=== PATIENT | female | born 1955 | race Caucasian/White ===

== ENCOUNTER → 2016-09-30 | Outpatient (CLI) | payer BC ==
[~2016-09-30] MED LIST: AMOXICILLIN 8751 TAB PO; BLOOD PRESSURE MED; CIPRO 500MG TA500 MG PO; FLAGYL500 MG PO; NORCO 325 MG-51 TAB PO; NORVASC2.5 MG PO; ZOFRAN ODT4 MG PO
== END ==
LOC: MC.RAD 09:35
DX: Z12.31 Encounter for screening mammogram for malignant neoplasm of breast (principal)

== ENCOUNTER 2016-11-09 18:39 | Emergency (ER) | payer BC ==
[~2016-11-09] VITALS: Ht 162.6 cm; Wt 53.6 kg
[~2016-11-09 18:39] MED LIST changes: -AMOXICILLIN 8751 TAB PO; -CIPRO 500MG TA500 MG PO; -FLAGYL500 MG PO; -NORVASC2.5 MG PO; -ZOFRAN ODT4 MG PO
[2016-11-09 18:43] VITALS: TEMP 98.6
[2016-11-09 19:01] LABS: BASO % 0.3 % (0.0-2.0); EOS # 0.1 (0.0-0.7); EOS % 0.5 % (0-4.0); GRAN # 8.7 (1.4-6.5); GRAN % 79.3 % (42.2-75.2); HEMATOCRIT 41.1 % (37.0-47.0); LYMPH # 1.5 (1.2-3.4); LYMPH % 13.6 % (20.0-51.0); MEAN CELL VOLUME 91 fl (80.0-100.0); MEAN CORPUSCULAR HEMOGLOBIN 31 pg (27.0-31.0); MEAN CORPUSCULAR HGB CONC 34 g/dl (33.0-37.0); MEAN PLATELET VOLUME 11.5 fl (7.4-10.4); MONO # 0.7 (0.1-0.6); MONO % 5.9 % (1.7-9.3); PLATELET COUNT 209 K/mm3 (130-400); REDCELL DISTRIBUTION WIDTH-CV 12.2 % (11.5-14.5); WHITE BLOOD COUNT 10.9 K/mm3 (4.8-10.8)
[2016-11-09] MEDS ORDERED: NORVASC2.5 MG PO (19:03)
[2016-11-09 19:18] LABS: ADJUSTED CALCIUM 9.1 mg/dL (8.4-10.2); ALBUMIN 4.9 gm/dL (3.5-5.0); BILIRUBIN,TOTAL 1.1 mg/dL (0.0-1.0); CALCIUM 9.8 mg/dL (8.4-10.2); CREATININE, serum 0.64 mg/dL (0.52-1.25); POTASSIUM 3.1 mmol/L (3.4-5.0); TOTAL PROTEIN 7.9 gm/dL (6.4-8.2)
[2016-11-09 19:41] LABS: PH 6 (5-8); SQUAMOUS EPITHELIAL None Seen /hpf; URINE APPEARANCE Clear; URINE BACTERIA None Seen /hpf; URINE BILIRUBIN Negative (NEGATIVE); URINE BLOOD Negative (NEGATIVE); URINE COLOR Straw; URINE GLUCOSE Negative (NEGATIVE); URINE KETONE 1+ (NEGATIVE); URINE RBC 0-2 /hpf; URINE UROBILINOGEN Negative (NEGATIVE); URINE WBC 0-2 /hpf
[2016-11-09] MEDS ORDERED: ZOFRAN ODT4 MG PO (20:47)
[2016-11-09] MEDS ORDERED: NORCO 325 MG-51 TAB PO (20:47)
[2016-11-09] MEDS ORDERED: CIPRO 500MG TA500 MG PO (20:47)
[2016-11-09] MEDS ORDERED: FLAGYL500 MG PO (20:47)
[2016-11-09 21:00] VITALS: BP 137/76; PULSE 75
== END 2016-11-09 21:05 | disposition home or self-care (01) ==
LOC: COL.ER 18:39
PROVIDERS: Emergency Medicine
DX: K52.9 Noninfective gastroenteritis and colitis, unspecified (principal); I10 Essential (primary) hypertension; E87.6 Hypokalemia
CPT/HCPCS: J2765; J3010; J7030

== ENCOUNTER 2016-11-23 13:58 | Inpatient (IN) | payer BC ==
[~2016-11-23] VITALS: Ht 160 cm; Wt 54.2 kg
[~2016-11-23 13:58] MED LIST changes: +CIPRO 500MG TA500 MG PO; +FLAGYL500 MG PO; +NORVASC2.5 MG PO; +ZOFRAN ODT4 MG PO
[2016-11-23 15:55] LABS: HEMOGLOBIN 13.3 g/dl (12.5-16.0); MEAN CELL VOLUME 92 fl (80.0-100.0); MEAN CORPUSCULAR HEMOGLOBIN 32 pg (27.0-31.0); MEAN CORPUSCULAR HGB CONC 34 g/dl (33.0-37.0); PLATELET COUNT 272 K/mm3 (130-400); RED BLOOD COUNT 4.22 M/mm3 (4.10-5.30); REDCELL DISTRIBUTION WIDTH-CV 12.8 % (11.5-14.5)
[2016-11-23 15:58] LABS: ADD PATHOLOGY DIFF REVIEW NO; WHITE BLOOD COUNT 21.8 K/mm3 (4.8-10.8)
[2016-11-23 16:17] LABS: BAND 4 % (0-10); NEUTROPHILS 89 % (42.0-75.2); TOTAL CELLS COUNTED 100
[2016-11-23 16:19] LABS: ADJUSTED CALCIUM 9.5 mg/dL (8.4-10.2); BILIRUBIN,TOTAL 1.7 mg/dL (0.0-1.0); CALCIUM 9.5 mg/dL (8.4-10.2); CREATININE, serum 0.63 mg/dL (0.52-1.25); POTASSIUM 3.6 mmol/L (3.4-5.0); TOTAL PROTEIN 7.3 gm/dL (6.4-8.2)
[2016-11-23 16:32] LABS: PH 5 (5-8); SQUAMOUS EPITHELIAL 0-2 /hpf; URINE APPEARANCE Clear; URINE BACTERIA None Seen /hpf; URINE BILIRUBIN Negative (NEGATIVE); URINE BLOOD 1+ (NEGATIVE); URINE COLOR Yellow; URINE GLUCOSE Negative (NEGATIVE); URINE KETONE 1+ (NEGATIVE); URINE RBC 0-2 /hpf; URINE UROBILINOGEN Negative (NEGATIVE)
[2016-11-23 16:37] LABS: C-REACTIVE PROTEIN 14.4 mg/dL (0.0-0.9)
[2016-11-23 18:37] VITALS: PULSE 89; TEMP 98.3
[2016-11-24 05:19] VITALS: BP 116/65; PULSE 76; TEMP 98.5
[2016-11-24 07:33] LABS: BASO % 0.3 % (0.0-2.0); EOS # 0.1 (0.0-0.7); EOS % 0.7 % (0-4.0); GRAN # 8.3 (1.4-6.5); GRAN % 82.6 % (42.2-75.2); LYMPH % 10.4 % (20.0-51.0); MEAN CELL VOLUME 95 fl (80.0-100.0); MEAN CORPUSCULAR HGB CONC 33 g/dl (33.0-37.0); MEAN PLATELET VOLUME 10.8 fl (7.4-10.4); MONO # 0.6 (0.1-0.6); MONO % 5.6 % (1.7-9.3); PLATELET COUNT 221 K/mm3 (130-400); RED BLOOD COUNT 3.65 M/mm3 (4.10-5.30); REDCELL DISTRIBUTION WIDTH-CV 12.8 % (11.5-14.5)
[2016-11-24 07:36] LABS: HEMATOCRIT 34.6 % (37.0-47.0); HEMOGLOBIN 11.3 g/dl (12.5-16.0); MEAN CORPUSCULAR HEMOGLOBIN 31 pg (27.0-31.0)
[2016-11-24 10:52] VITALS: BP 141/73; PULSE 75; TEMP 98.8
[2016-11-24 14:04] VITALS: BP 114/60; PULSE 65; TEMP 98.4
[2016-11-24 18:01] VITALS: BP 130/72; PULSE 68; TEMP 98.1
[2016-11-24 22:00] VITALS: BP 140/71; PULSE 71; TEMP 97.9
[2016-11-25 05:28] VITALS: BP 148/72; PULSE 73; TEMP 98.6
[2016-11-25 09:11] VITALS: BP 135/72; PULSE 59; TEMP 96.5
[2016-11-25 13:11] VITALS: BP 137/66; PULSE 51; TEMP 98.4
[2016-11-25 17:24] VITALS: BP 137/71; PULSE 58; TEMP 97.9
[2016-11-25 21:42] VITALS: BP 140/70; PULSE 63; TEMP 97.5
[2016-11-26 02:56] VITALS: BP 169/79; PULSE 59; TEMP 98.5
[2016-11-26 05:00] VITALS: BP 150/83; PULSE 68; TEMP 97.4
[2016-11-26 10:08] VITALS: BP 133/83; PULSE 72; TEMP 98.2
[2016-11-26 13:40] VITALS: BP 133/83; PULSE 64; TEMP 97.6
[2016-11-26] MEDS ORDERED: AMOXICILLIN 8751 TAB PO (14:58)
== END 2016-11-26 16:30 | disposition home or self-care (01) | DRG 392 ==
LOC: COL.ER 13:58 → SURG 17:25
PROVIDERS: Emergency Medicine; Surgery
DX: K57.32 Diverticulitis of large intestine without perforation or abscess without bleeding (principal); I10 Essential (primary) hypertension; N83.201 Unspecified ovarian cyst, right side
CPT/HCPCS: J1170; J2270; J2405; J2543; J2550; J7030; J7050

== ENCOUNTER → 2017-10-22 | Outpatient (CLI) | payer BC ==
[~2017-10-22] MED LIST changes: +AMOXICILLIN 8751 TAB PO
== END ==
LOC: MC.RAD 09:31
DX: Z12.31 Encounter for screening mammogram for malignant neoplasm of breast (principal)

== ENCOUNTER → 2018-11-02 | Outpatient (CLI) | payer BC | LOC: MC.RAD 10:55 | DX: Z12.31 Encounter for screening mammogram for malignant neoplasm of breast (principal) ==

== ENCOUNTER → 2019-12-04 | Outpatient (CLI) | payer BC | LOC: MC.RAD 11-06 09:30 | DX: Z12.31 Encounter for screening mammogram for malignant neoplasm of breast (principal) ==